=== PATIENT | male | born 1960 | race Caucasian/White ===

== ENCOUNTER 2017-07-09 13:37 | Day surgery (SDC) | payer MEDICARE, OTHER ==
[2017-07-09] MEDS ORDERED: hydrALAzine 20 MG INJ (16:50)
== END 2017-07-09 16:39 | disposition home or self-care (01) ==
LOC: GIL 13:37
DX: Z12.11 Encounter for screening for malignant neoplasm of colon (principal); D12.5 Benign neoplasm of sigmoid colon; K64.8 Other hemorrhoids; I10 Essential (primary) hypertension
CPT/HCPCS: 45380; 88305